=== PATIENT | female | born 2000 | race Caucasian/White ===

== ENCOUNTER 2022-05-18 14:53 | Emergency (ER) | payer SELFPAY ==
[2022-05-18] MEDS ORDERED: Acetaminophen 325 MG TAB ONE (16:05)
[2022-05-18] MEDS ORDERED: Ibuprofen 200 MG TAB ONE (16:06)
[2022-05-18 16:30] LABS: Bilirubin Neg (Negative); Blood, Urine 250 (Negative); Clarity Clear (Clear); Glucose, Urine (Dipstick) Normal (Negative); Ketone, Urine 5 mg/dL (Negative); Leukocyte 25 (Negative); Nitrite Negative (Negative); Protein, Urine (Dipstick) 30 mg/dl (Neg-Trace)
[2022-05-18 16:32] LABS: Pregnancy Test - Urine (BHCG) Negative (Negative)
[2022-05-18 16:33] LABS: Pregu Control Background? CLEAR/WHITE (CLR/WHITE); Pregu Control Bar Appear? YES (CONTROL BAR)
[2022-05-18 16:54] LABS: Bacteria/HPF 2+ HPF (None Seen); RBC/HPF 21-50 HPF (0-3)
[2022-05-18 18:07] LABS: SARS-CoV-2 NAA Rapid Test Not Detected (NotDetected)
== END 2022-05-18 17:49 | disposition home or self-care (01) ==
LOC: CSHERS 14:53
DX: B34.9 Viral infection, unspecified (principal); M54.50 Low back pain, unspecified; Z20.822 Contact with and (suspected) exposure to COVID-19
CPT/HCPCS: 81003; 81015; 81025; 87081; 87086; 87430; 99283

== ENCOUNTER 2023-05-16 21:56 | Emergency (ER) | payer SELFPAY ==
[2023-05-16 22:50] LABS: Bilirubin Neg (Negative); Blood, Urine 25 (Negative); Clarity Clear (Clear); Glucose, Urine (Dipstick) Normal (Negative); Ketone, Urine Negative (Negative); Leukocyte 500 (Negative); Nitrite Negative (Negative); Protein, Urine (Dipstick) 15 mg/dl (Neg-Trace); Urobilinogen Normal mg/dL (Less than 2)
[2023-05-16] MEDS ORDERED: Azithromycin 250 MG TAB ONE (22:50)
[2023-05-16] MEDS ORDERED: Sterile Water 10 ML ONE (22:50)
[2023-05-16] MEDS ORDERED: cefTRIAXone (ROCEPHIN) 500 MG VIAL ONE (22:50)
[2023-05-16 23:00] LABS: Pregnancy Test - Urine (BHCG) Negative (Negative); Pregu Control Background? CLEAR/WHITE (CLR/WHITE); Pregu Control Bar Appear? YES (CONTROL BAR)
[2023-05-16 23:11] LABS: Bacteria/HPF 2+ HPF (None Seen); CAUTI Indications for Culture Pelvic or flank pain; Trichomonas/HPF 1+ HPF (None Seen); WBC/HPF Greater than 50 HPF (0-3)
[2023-05-16 23:12] LABS: Urine Culture Reflex Yes Yes
[2023-05-18 02:34] LABS: Chlamydia by PCR, Vaginal Swab Not Detected (NotDetected); GC by PCR, Vaginal Swab Not Detected (NotDetected); Tric.vaginalis PCR,Vaginal Sw DETECTED (NotDetected)
== END 2023-05-16 23:20 | disposition home or self-care (01) ==
LOC: CSHERS 21:56
DX: N89.8 Other specified noninflammatory disorders of vagina (principal); Z20.2 Contact with and (suspected) exposure to infections with a predominantly sexual mode of transmission
CPT/HCPCS: 81001; 81025; 87086; 87491; 87591; 87661; 96372; 99283; J0696

== ENCOUNTER 2023-09-04 10:57 | Emergency (ER) | payer SELFPAY ==
[2023-09-04 11:43] LABS: Bilirubin Neg (Negative); Blood, Urine 25 (Negative); Clarity Clear (Clear); Glucose, Urine (Dipstick) Normal (Negative); Ketone, Urine 50 mg/dL (Negative); Leukocyte 25 (Negative); Nitrite Negative (Negative); Protein, Urine (Dipstick) 15 mg/dl (Neg-Trace); Specific Gravity, Urine 1.025 (1.005-1.030); Urobilinogen Normal mg/dL (Less than 2)
[2023-09-04 11:44] LABS: Pregnancy Test - Urine (BHCG) Negative (Negative); Pregu Control Background? CLEAR/WHITE (CLR/WHITE); Pregu Control Bar Appear? YES (CONTROL BAR); Specific Gravity 1.025 (1.002-1.036)
[2023-09-04 11:59] LABS: CAUTI Indications for Culture Pelvic or flank pain; WBC/HPF 0-3 HPF (0-3)
[2023-09-04 12:00] LABS: Bacteria/HPF Rare-Few HPF (None Seen); Mucous/LPF 1+ LPF (<2+); Urine Culture Reflex No No
[2023-09-04 23:49] LABS: Chlamydia by PCR, Vaginal Swab Not Detected (NotDetected); GC by PCR, Vaginal Swab Not Detected (NotDetected)
== END 2023-09-04 12:22 | disposition home or self-care (01) ==
LOC: CSHERS 10:57
DX: N89.8 Other specified noninflammatory disorders of vagina (principal); Z20.2 Contact with and (suspected) exposure to infections with a predominantly sexual mode of transmission
CPT/HCPCS: 81001; 81025; 87480; 87491; 87510; 87591; 87660; 99283

== ENCOUNTER 2024-03-10 14:20 | Emergency (ER) | payer SELFPAY | END 2024-03-10 14:57 | disposition home or self-care (01) | LOC: CSHERS 14:20 | DX: R07.89 Other chest pain (principal); F17.290 Nicotine dependence, other tobacco product, uncomplicated; Z55.0 Illiteracy and low-level literacy; Z75.3 Unavailability and inaccessibility of health-care facilities | CPT/HCPCS: 93005; 93010 ==